=== PATIENT | female | born 1975 | race Two or more races ===

== ENCOUNTER 2016-12-26 22:43 | Emergency (ER) | payer SELFPAY ==
[~2016-12-26] VITALS: Ht 165.1 cm; Wt 79.5 kg
[2016-12-26 22:49] VITALS: BP 144/83
== END 2016-12-27 00:39 | disposition left against medical advice (07) ==
LOC: EMS 22:47
DX: R51 Headache (principal); I10 Essential (primary) hypertension; Z53.21 Procedure and treatment not carried out due to patient leaving prior to being seen by health care provider

== ENCOUNTER 2017-10-21 04:11 | Emergency (ER) | payer OTHER ==
[~2017-10-21] VITALS: Ht 162.6 cm; Wt 90.0 kg
[2017-10-21] MEDS ORDERED: BENZONATATE 100 MG CAPSULE PO ONE (06:30)
[2017-10-21] MEDS ORDERED: DiphenhydrAMINE HCL 25 MG CAPSULE PO ONE (06:30)
[2017-10-21 07:31] VITALS: BP 125/68
== END 2017-10-21 07:39 | disposition home or self-care (01) ==
LOC: EMS 04:11
DX: R05 Cough (principal)
CPT/HCPCS: 99283